=== PATIENT | female | born 1965 | race Caucasian/White ===

== ENCOUNTER → 2016-11-06 | Outpatient (CLI) | payer MEDICARE ==
[~2016-11-06] MED LIST: BACTRIM 400-801 EACH PO; BENTYL 20MG TAB20 MG PO; BUPROPION XL150 MG PO; BUTALBIT-ACETA1 EACH PO; CEFTIN250 MG/5 M PO; FLEXERIL 10 MG10 MG PO; HYDROCHLOROTHIA25 MG PO; LEVOTHYROXINE125 MCG PO; LISINOPRIL20 MG PO; MECLIZINE HCL25 MG PO; NORCO 5-325 TA1 EACH PO; OMEPRAZOLE40 MG PO; ZEBETA 5 MG TAB5 MG PO; ZOCOR20 MG PO
== END ==
LOC: RAD 11:56
DX: M47.812 Spondylosis without myelopathy or radiculopathy, cervical region (principal); M53.0 Cervicocranial syndrome; G89.4 Chronic pain syndrome
CPT/HCPCS: 72040